=== PATIENT | male | born 1960 | race Hispanic/Latino ===

== ENCOUNTER → 2019-04-21 08:48 | Outpatient (CLI) | payer OTHER, SELFPAY ==
--- NOTE | 2019-04-21 08:58 | US_ITS ---
STUDY: ABDOMINAL ULTRASOUND REASON FOR EXAM: Male, 58 years old. Anemia TECHNIQUE: Transabdominal ultrasound was performed with real-time and static montez scale imaging. TECHNICAL QUALITY: Adequate. COMPARISON: None. FINDINGS: Liver: The liver measures 17.3 cm. There is normal echogenicity of the liver. The bile ducts are within normal limits. There is hepatic color flow. The direction of portal flow is hepatopetal. There is no demonstrated mass lesion. Portal vein measurement: Gallbladder: Normal distended gallbladder. The gallbladder wall measures 2.8 mm. There is a negative sonographic Medel's sign. There is no pericholecystic fluid. There are no gallstones. Common Bile Duct (C.B.D.): The common bile duct measures 4.9 mm. Pancreas: Normal size of the head, body and tail of the pancreas. There is normal echogenicity of the pancreas. There is no demonstrated pancreatic mass or cyst. Spleen: There is splenomegaly. The spleen measures 14 cm. Right Kidney: Normal size of the right kidney. The right kidney measures 11.3 x 6.0 x 5.1 cm. Normal renal cortex. The right cortex measures 1.7 cm. There is no demonstrated renal mass or cyst. There is no right hydronephrosis. Left Kidney: Normal size of the left kidney. The left kidney measures 11.2 x 6.4 x 4.7 cm. Normal renal cortex. The left cortex measures 1.5 cm. There is no demonstrated renal mass or cyst. There is no left hydronephrosis. Aorta: Normal in size. Mild calcified plaque. I.V.C.: The IVC is patent. There is no ascites. US/Abdomen Complete IMPRESSION: Splenomegaly. No evidence of acute biliary pathology. Electronically Signed: Douglas Blas MD at 11:57 EDT Tel , Service support ,
== END ==
DX: D64.9 Anemia, unspecified (principal)
CPT/HCPCS: 76700

== ENCOUNTER → 2021-10-20 08:03 | Outpatient (CLI) | payer OTHER, SELFPAY ==
--- NOTE | 2021-10-20 08:18 | MRI_ITS ---
STUDY: MRI RIGHT KNEE REASON FOR EXAM: Medial right knee pain. TECHNIQUE: Standardized fat and water weighted pulse sequences were obtained in all 3 orthogonal planes. COMPARISON: None. FINDINGS: There is a complex tear of the posterior horn/posterior body of the medial meniscus (proton-density sagittal images 29-37; proton-density coronal images 13, 14). There is mild peripheral subluxation of the medial meniscus. There is a small chondral tear of the medial femoral condyle (T2 sagittal image 18). Normal medial femoral condyle and tibial plateau. Normal medial collateral ligamentous complex (MCL). Normal distal semimembranosus, gracilis and semitendinosus tendons. Normal lateral meniscus. Normal hyaline cartilage of the lateral femorotibial compartment. Normal lateral femoral condyle and tibial plateau. Normal proximal tibiofibular articulation. Normal lateral collateral (fibular) ligament. Normal popliteus tendon. Normal biceps femoris tendon. Normal anterior cruciate ligament (ACL). Normal posterior cruciate ligament (PCL). Normal congruent patellofemoral articulation. There is arthrosis of the patellofemoral compartment with partial-thickness chondral loss (T2 sagittal image 11). Normal medial and lateral patellar retinaculum. Normal visualized quadriceps tendon. Normal patellar tendon. Normal Hoffa''s fat pad. There is a very small joint effusion. There is an intra-articular body superficial to the lateral femoral condyle (T2 coronal image 19) measuring 0.8 cm in length. There is a small popliteal cyst (T2 sagittal images 22-24). The otherwise visualized osseous structures are unremarkable. MRI/Lower Ext Joint Only (Routine) IMPRESSION: Medial meniscal tear. Small chondral tear of the medial femoral condyle. Patellofemoral arthrosis. Very small joint effusion. Small popliteal cyst. Intra-articular body. Electronically Signed: Rene Wilkerson MD at 9:48 EST Tel , Service support ,
== END ==
DX: M25.561 Pain in right knee (principal)
CPT/HCPCS: 73721